=== PATIENT | female | born 1975 | race Caucasian/White ===

== ENCOUNTER 2017-03-04 22:40 | Emergency (ER) | payer OTHER ==
[~2017-03-04] VITALS: Ht 162.6 cm; Wt 62.6 kg
[~2017-03-04 22:40] MED LIST: GLIP10TA13 PO; HYDR25TA6 PO; LOVA20TA2 PO; METF500T4 PO; VERA240C2 PO
[2017-03-04] MEDS ORDERED: HYDROmorphone 1 MG/ML, 1ML ONE (23:20)
[2017-03-04] MEDS ORDERED: METOCLOPRAMIDE 5 MG/ML, 2ML ONE (23:20)
[2017-03-04] MEDS ORDERED: ONDANSETRON ODT 4 MG PO ONE (23:30)
[2017-03-04] MEDS ORDERED: HYDROmorphone 1 MG/ML, 1ML IM ONE (23:30)
[2017-03-04] MEDS ORDERED: METOCLOPRAMIDE 5 MG/ML, 2ML IM ONE (23:30)
[2017-03-04] MEDS ORDERED: ONDANSETRON ODT 4 MG ONE (23:31)
[2017-03-04 23:48] VITALS: BP 116/62
== END 2017-03-04 23:59 | disposition home or self-care (01) ==
LOC: ED 23:02
DX: M32.9 Systemic lupus erythematosus, unspecified (principal); E03.9 Hypothyroidism, unspecified; G89.29 Other chronic pain; M54.9 Dorsalgia, unspecified; Z98.1 Arthrodesis status; Z90.710 Acquired absence of both cervix and uterus
CPT/HCPCS: 70450; 96372; 99284; J1170; J2765; Q0162